=== PATIENT | male | born 1935 | race Caucasian/White ===

== ENCOUNTER 2024-08-13 07:17 | Emergency (ER) | payer MEDICARE ==
[~2024-08-13] VITALS: Ht 175.3 cm; Wt 70.5 kg
[~2024-08-13 07:17] MED LIST: ONDA-243 PO
--- NOTE | 2024-08-13 08:20 | Physician Documentation ---
History of Present Illness ~ Chief Complaint: Wound Stated Complaint: L ARM INJURY Time Seen by MD: 08:08 OK to notify your PCP?: Yes Primary Medical Doctor: Cathi Mode of Arrival: Dropped Off HPI 89-year-old male presents to the emergency department complaining of left arm swelling, patient was working on his property and fell several days ago, he has cyanosis of the left lower arm however no pain, there is a large swelling to the left lower arm just distal to the elbow, patient denies taking blood thinners. Timing/Duration: days Type of Wound: abrasion, laceration, cellulitis Prior Treatment: none Tetanus within 5 years?: No Pain Severity: mild Discharge: clear Associated Symptoms: denies symptoms Medication Reconciliation Allergies: Coded Allergies: No Known Allergies (Unverified , 08/13/24) Scheduled PRN ONDANSETRON ODT 4mg tablet (Ondansetron Odt), 1 TABLET PO Q6H PRN for nausea/vomiting Past Medical History Past Medical History: Hypertension Past Surgical History: no surgical history Alcohol Use: None Drug Use: none Lives with: Spouse Lives In: Home Occupation: retired Physical Exam Vital Signs: Temperature: 97.0, Source: Temporal, Heart Rate: 73, Respiratory Rate: 18, BP: 162/102, Pulse Oximetry: 99, Weight: 70.450 Oxygen Flow Rate: 0 Pulse Oximetry Reflects: adequate oxygenation General Appearance: alert, WD/WN, no apparent distress EENT: normal ENT inspection, moist mucous membranes Neck: non-tender, full range of motion, supple Cardiovascular: normal peripheral pulses, regular rate, rhythm, no edema Respiratory: lungs clear, normal breath sounds, no respiratory distress Chest: no accessory muscle use, chest non-tender Gastrointestinal: normal palpation, non-tender, bowels sounds present Extremities Cyanosis of the left upper extremity from the elbow to the fingertips, there is a large swelling over the extensor muscles on the left forearm with note appears to be hematoma versus seroma, delayed cap refill of the fingers, there is a strong palpable radial artery pulse. Skin: cyanosis, abrasion, swelling Lymphatics: normal inspection; No: tenderness Progress Results/Orders Results/Orders Orders - MIESHA MCDUFFIE DO Us Non Vascular (08/13/24 08:16) Ct Upper Extremities (08/13/24 10:38) General Nursing Order (08/13/24 ) Completed Orders - MIESHA MCDUFFIE DO Us Non Vascular (08/13/24 08:16) Cbc/Diff (08/13/24 08:16) CMP (08/13/24 08:16) Pt Inr (08/13/24 08:16) Ct Upper Extremities (08/13/24 10:38) Iohexol 300mg/Ml 100ml Inj. (Omnipaque-3 (08/13/24 10:58) Vital Signs 08/13/24 08/13/24 08/13/24 08/13/24 07:23 07:54 08:49 10:56 Temp 97.0 97.0 97.0 Pulse 73 78 58 Resp 14 18 18 18 B/P (MAP) 162/102 135/88 (104) 163/106 (125) Pulse Ox 99 97 96 O2 Flow Rate 0 0 0 08/13/24 11:53 Temp 97.0 Pulse 65 Resp 18 B/P (MAP) 155/96 (115) Pulse Ox 98 O2 Flow Rate 0 Laboratory Tests Test 08/13/24 07:50 08/13/24 09:15 White Blood Count 9.1 Red Blood Count 4.46 L Hemoglobin 13.5 L Hematocrit 40.4 L Mean Corpuscular Volume 90.6 Mean Corpuscular Hemoglobin 30.3 Mean Corpuscular Hemoglobin Concent 33.5 Red Cell Distribution Width 15.3 H Platelet Count 287 Mean Platelet Volume 8.4 Neutrophils (%) (Auto) 74.4 Lymphocytes (%) (Auto) 12.5 L Monocytes (%) (Auto) 9.3 Eosinophils (%) (Auto) 3.2 Basophils (%) (Auto) 0.6 Neutrophils # (Auto) 6.8 Lymphocytes # (Auto) 1.1 Monocytes # (Auto) 0.8 Eosinophils # (Auto) 0.3 Basophils # (Auto) 0.1 CBC Comment Sodium Level 143 Potassium Level 4.0 Chloride Level 107 Carbon Dioxide Level 27.9 Anion Gap 8 Blood Urea Nitrogen 26 H Creatinine 0.85 Estimated GFR/1.73 m2 85 BUN/Creatinine Ratio 30.6 H Glucose Level 92 Calcium Level 9.3 Total Bilirubin 0.6 Aspartate Amino Transf (AST/SGOT) 25 Alanine Aminotransferase (ALT/SGPT) 27 Alkaline Phosphatase 75 Total Protein 7.7 Albumin 4.1 Globulin 3.6 Albumin/Globulin Ratio 1.1 Chemistry Comments Prothrombin Time 10.6 INR International Normalized Ratio 1.0 Coagulation Comments Re-Evaluation Re-Evaluation : Progress 10:40 a.m. patient re-evaluated informed of ultrasound and labs, plan is to get a CT scan to further characterize the lesion of the left forearm and determine if it can be simply incised and drained in the ER versus needing a surgical consultation. 1:10 p.m. re-evaluated patient, informed of plan for compressive dressing on the hematoma keep wound elevated no signs of infection at this point continue with topical antibiotics with a skin tear, surgery recommended compressive dressings and nonsurgical management at this time for up to another 6-7 weeks. Patient is to return to the ER for any worsening pain redness or swelling. EKG/XRAY/CT/US/VASC/MRI CT : Impression [address] [address] CAT SCAN Patient: AZUL CASILLAS Medical Record: [id number] [facility] 1935, Age: 89 Sex: Male Location: ER Patient Status: [facility] ER Service Date/Time: 08/13/241037 Ordering Physician: MIESHA MCDUFFIE DO Exam: CT UPPER EXTREMITIES EXAM: CT CT UPPER EXTREMITIES W/ IV CONTRAST HISTORY: LEFT FOREARM abscess 89-year-old male with left forearm and elbow wound after falling. COMPARISON: Ultrasound examination from earlier same day. TECHNIQUE: Helical CT images of the left upper extremity were performed with 100 mL Omnipaque 300 IV contrast. Sagittal and coronal reformatted images were obtained. This CT exam was performed using 1 or more of the following dose reduction techniques: Automated exposure control, adjustment of the mA and/or kv according to patient size, or the use of iterative reconstruction techniques. Radiation Dose: CTDI volume is 5.56 mGy. Dose-length product is 291.68 mGy*cm FINDINGS/IMPRESSION: 1. No acute fracture of the left radius or ulna. 2. Soft tissue mass lesion in the subcutaneous fat of the proximal aspect of the dorsal left forearm, consistent with hematoma given the patient's history of recent fall. This measures 10.5 cm longitudinal x 4.9 cm transverse times 2.3 cm depth. There is adjacent subcutaneous edema involving the medial aspect of the forearm and posterior aspect of the elbow. 3. No evidence of soft tissue abscess about the left forearm. Electronically Signed by:JANET PAYNE MD Date & Time: 08/13/241211 Dictated by: JANET PAYNE MD Dictation date and time: 08/13/241211 Primary Care Provider: NO PRIMARY CARE PROVIDER cc: MIESHA MCDUFFIE DO ~ Ultrasound : Impression [address] [address] ULTRASOUND Patient: AZUL CASILLAS Medical Record: [id number] [facility] 1935, Age: 89 Sex: Male Location: ER Patient Status: [facility] ER Service Date/Time: 08/13/24815 Ordering Physician: MIESHA MCDUFFIE DO Exam: US NON VASCULAR Exam: US US NON VASCULAR Date: 08/13/2024 08:34 AM Clinical History: left arm mass seroma Comparison: None Technique: Targeted sonographic evaluation of the soft tissues of the left elbow was obtained utilizing grayscale and color Doppler imaging. Findings/Impression: Soft tissue edema and phlegmonous changes visualized in the soft tissues of the left elbow. No discrete organized fluid collection. Findings may reflect cellulitis with phlegmonous change. If clinically indicated, consider further evaluation with CT. Electronically Signed by:MARGARET MUNOZ MD Date & Time: 08/13/24 100 Dictated by: MARGARET MUNOZ MD Dictation date and time: 08/13/24 100 Primary Care Provider: NO PRIMARY CARE PROVIDER cc: MIESHA MCDUFFIE DO ~ Consults/PCP Consults/PCP : Additional Comment 1:05 p.mJewel discussed case with Dr. Kahn general surgery, he recommends nonsurgical intervention, continue with light compressive dressing and monitoring at home, states it he would not do surgery for up to two months Medical Decision Making Differential Dx:Considerations: Include: Abscess, Cellulitis, Dressing change, Healing wound Departure Disposition: HOME / SELF CARE / HOMELESS Impression: Primary Impression: Wound Additional Impression: Hematoma Condition: Stable Discharge Instructions: Abrasion, Hematoma, How to Change Your Wound Dressing Additional Instructions: Please use a light compressive dressing on the wound and elevate as necessary, if your fingers become numb or colds the compressive dressing is too tight, please do not sleep with compressive dressing on the wound as it could potential ly turn into a tourniquet while sleeping causing tissue damage. Referrals: NO PRIMARY CARE PROVIDER (PCP) Education Educated: Patient Educated regarding: diagnosis, treatment, prognosis Signature Scribe Signature: None Attestation: Dictated by myself MIESHA MCDUFFIE DO Aug 13, 2024 08:20
[2024-08-13 08:32] LABS: BASOPHILS # (AUTO) 0.1 X10'3 (0-0.2); BASOPHILS % (AUTO) 0.6 % (0-1); EOSINOPHILS # (AUTO) 0.3 X10'3 (0-0.9); EOSINOPHILS % (AUTO) 3.2 % (0-6); HEMATOCRIT 40.4 % (42.0-52.0); HEMOGLOBIN 13.5 g/dl (14.0-17.9); LYMPHOCYTES # (AUTO) 1.1 X10'3 (1.1-4.8); LYMPHOCYTES % (AUTO) 12.5 % (21-51); MEAN CORPUSCULAR HEMOGLOBIN 30.3 PG (27.0-31.0); MEAN CORPUSCULAR HGB CONC 33.5 g/dL (33.0-36.5); MEAN CORPUSCULAR VOLUME 90.6 FL (78-98); MEAN PLATELET VOLUME 8.4 FL (7.4-10.4); MONOCYTES # (AUTO) 0.8 X10'3 (0-0.9); MONOCYTES % (AUTO) 9.3 % (2-12); NEUTROPHILS # (AUTO) 6.8 X10'3 (1.8-7.7); NEUTROPHILS % (AUTO) 74.4 % (42-75); PLATELET COUNT 287 X10'3 (140-440); RED BLOOD COUNT 4.46 X10'6 (4.70-6.10); RED CELL DISTRIBUTION WIDTH 15.3 % (11.5-14.5); WHITE BLOOD COUNT 9.1 X10'3 (4.5-11.0)
[2024-08-13 08:43] LABS: ALANINE AMINOTRANSFERASE 27 U/L (12-78); ALBUMIN 4.1 G/DL (3.4-5.0); ALBUMIN/GLOBULIN RATIO 1.1 (1.1-1.5); ALKALINE PHOSPHATASE 75 IU/L (46-116); ANION GAP 8 (8-16); ASPARTATE AMINO TRANSFERASE 25 U/L (10-37); BILIRUBIN,TOTAL 0.6 MG/DL (0.1-1.0); BLOOD UREA NITROGEN 26 MG/DL (7-18); BUN/CREATININE RATIO 30.6 (10.0-20.0); CALCIUM 9.3 MG/DL (8.5-10.1); CHLORIDE 107 MMOL/L (99-107); CREATININE 0.85 MG/DL (0.60-1.10); GLUCOSE 92 MG/DL (70-104); SODIUM 143 MMOL/L (135-145); TOTAL CARBON DIOXIDE 27.9 MMOL/L (24-32); TOTAL PROTEIN 7.7 G/DL (6.4-8.2); eCRCL 60 ML/MIN; eGFR 85 ML/MIN
[2024-08-13 09:48] LABS: PROTHROMBIN TIME 10.6 SECONDS (9.0-12.0)
--- NOTE | 2024-08-13 10:04 | RADIOLOGY REPORT ---
Exam: US US NON VASCULAR Date: 08/13/2024 08:34 AM Clinical History: left arm mass seroma Comparison: None Technique: Targeted sonographic evaluation of the soft tissues of the left elbow was obtained utilizing grayscal e and color Doppler imaging. Findings/Impression: Soft tissue edema and phlegmonous changes visualized in the soft tissues of the left elbow. No discre te organized fluid collection. Findings may reflect cellulitis with phlegmonous change. If clinically indicated, consider further evaluation with CT.
[2024-08-13] MEDS ORDERED: iohexol 300mg/ml 100ml inj. ONE (10:58)
[2024-08-13 11:53] VITALS: BP 155/96; PULSE 65; RESP 18; TEMP 97; O2SAT 98
--- NOTE | 2024-08-13 12:15 | RADIOLOGY REPORT ---
EXAM: CT CT UPPER EXTREMITIES W/ IV CONTRAST HISTORY: LEFT FOREARM abscess 89-year-old male with left forearm and elbow wound after falling. COMPARISON: Ultrasound examination from earlier same day. TECHNIQUE: Helical CT images of the left upper extremity were performed with 100 mL Omnipaque 300 IV contrast. Sagittal and coronal reformatted images were obtained. This CT exam was performed using 1 o r more of the following dose reduction techniques: Automated exposure control, adjustment of the mA a nd/or kv according to patient size, or the use of iterative reconstruction techniques. Radiation Dose: CTDI volume is 5.56 mGy. Dose-length product is 291.68 mGy*cm FINDINGS/IMPRESSION: 1. No acute fracture of the left radius or ulna. 2. Soft tissue mass lesion in the subcutaneous fat of the proximal aspect of the dorsal left forearm, consistent with hematoma given the patient's history of recent fall. This measures 10.5 cm longitudi nal x 4.9 cm transverse times 2.3 cm depth. There is adjacent subcutaneous edema involving the medial aspect of the forearm and posterior aspect of the elbow. 3. No evidence of soft tissue abscess about the left forearm.
== END 2024-08-13 13:44 | disposition home or self-care (01) ==
LOC: ER 07:17
DX: S40.922A Unspecified superficial injury of left upper arm, initial encounter (principal); I10 Essential (primary) hypertension; X58.XXXA Exposure to other specified factors, initial encounter; Y93.89 Activity, other specified; Y92.89 Other specified places as the place of occurrence of the external cause; Y99.8 Other external cause status
CPT/HCPCS: 36415; 73201; 76882; 80053; 85025; 85610; 99285; A6449; Q9967; J7040